=== PATIENT | female | born 1995 | race Caucasian/White ===

== ENCOUNTER → 2016-08-17 | Outpatient (CLI) | payer BC, OTHER ==
[2016-08-17 15:41] LABS: CH 32.4; HCT 37.2 % (34.0-46.0); HDW 2.49; HGB 12.9 gm/dL (11.4-16.0); MCH 32.2 pg (25.0-35.0); MCHC 34.6 g/dL (31.0-37.0); MCV 93.1 fL (80.0-100.0); Mean Platelet Volume 7.7; RBC 3.99 m/uL (3.80-5.40); RDW 12.5 % (11.5-15.5); WBC 10.9 k/uL (3.8-10.6)
[2016-08-17 15:51] LABS: Glucose 72 mg/dL (74-99); Non-African American GFR(MDRD) >60 (>60 ml/min/1.73 sqM)
[2016-08-17 16:24] LABS: Hepatitis B Surface Ag Index 0.06
[2016-08-18 05:02] LABS: Toxoplasma Antibody (IgG) <3.0 IU/mL (<7.2)
[2016-08-18 08:08] LABS: HIV-1/HIV-2 Ab Screen NONREAC (NON REAC)
== END | disposition home or self-care (01) ==
LOC: LABWHC1 15:20
PROVIDERS: ATTEND Obstetrics & Gynecology
DX: Z34.81 Encounter for supervision of other normal pregnancy, first trimester (principal); Z3A.00 Weeks of gestation of pregnancy not specified
CPT/HCPCS: 36415; 82565; 82947; 85027; 86762; 86777; 86778; 86780; 86850; 86900; 86901; 87340; 87389

== ENCOUNTER → 2016-09-29 | Outpatient (CLI) | payer BC, OTHER ==
--- NOTE | 2016-09-30 08:00 | US ---
EXAMINATION TYPE: US OB >= 14 wk fetus DATE OF EXAM: 09/29/2016 3:40 PM COMPARISON: None CLINICAL HISTORY: Large for Dates O36.62XO Anatomy. Patient states having last ultrasound at 9 weeks . TECHNIQUE: Transabdominal (TA) GESTATIONAL AGE / DATING Physician Established: (18 weeks/6 days) EDC: 05/20/2016 Dates by Current Scan: (14 weeks/5 days) EDC: 03/25/2017 SURVEY IUP: Single PLACENTA: Anterior PREVIA: No Previa ASHWINI: 9.5 cm Normal CERVICAL LENGTH (transabdominal: norm > 3.0cm): 3.9 cm BIOMETRY PRESENTATION: Vertex LIE: Longitudinal BPD: 2.3 cm 13 weeks / 6 days HC: 9.9 cm 14 weeks / 5 days AC: 8.9 cm 15 weeks / 1 days FL: 1.7 cm 15 weeks / 1 days ESTIMATED WEIGHT IN GRAMS: 112 grams ESTIMATED WEIGHT IN LBS/OZS: 0 lbs. 4 oz. WEIGHT PERCENTAGE BASED ON ESTABLISHED DATES: 2% HEART RATE: 0 bpm RHYTHM: Negative FHT's The cranium is partially collapsed. demise seen. Negative FHT's through mmode and color doppler. Debris seen within amniotic flu id. Fetus measuring 14 weeks 5 days. No heart valve motion was obtained. IMPRESSION: DEMISE.
== END | disposition home or self-care (01) ==
LOC: RADUSWWP 15:02
PROVIDERS: ATTEND Obstetrics & Gynecology
DX: O36.4XX0 Maternal care for intrauterine death, not applicable or unspecified (principal); Z3A.14 14 weeks gestation of pregnancy
CPT/HCPCS: 76805

== ENCOUNTER 2016-09-30 06:00 | Inpatient (IN) | payer BC, OTHER ==
[2016-09-30] MEDS ORDERED: ONDANSETRON 4 MG/2 ML VIAL IVP PRN (08:38)
--- NOTE | 2016-09-30 08:48 | P.HPOB ---
History of Present Illness H&P Date: 09/30/16 Chief Complaint: demise 21 year old presents for induction of labor due to demise measuring 14 weeks 5 days yesterday on US with no heart tones. She had laminaria placed yesterday, removed today and her cervix is 1/thick /-4. Review of Systems All systems: negative Constitutional: Denies chills, Denies fever Eyes: denies blurred vision, denies pain Ears, nose, mouth and throat: Denies headache, Denies sore throat Cardiovascular: Denies chest pain, Denies shortness of breath Respiratory: Denies cough Gastrointestinal: Denies abdominal pain, Denies diarrhea, Denies nausea, Denies vomiting Genitourinary: Denies dysuria, Denies hematuria Musculoskeletal: Denies myalgias Integumentary: Denies pruritus, Denies rash Neurological: Denies numbness, Denies weakness Psychiatric: Denies anxiety, Denies depression Endocrine: Denies fatigue, Denies weight change Past Medical History Past Medical History: No Reported History Additional Past Medical History / Comment(s): OB history: First was a full term vaginal delivery. She has had care with me since early in the first trimester. US yesterday was for anatomy at 19 weeks but measured 14 weeks 5 days with no heart beat. History of Any Multi-Drug Resistant Organisms: None Reported Past Surgical History: No Surgical Hx Reported Past Psychological History: No Psychological Hx Reported Smoking Status: Current every day smoker Past Alcohol Use History: Occasional Past Drug Use History: None Reported Medications and Allergies Allergies Allergy/AdvReac Type Severity Reaction Status Date / Time codeine Allergy Rash/Hives Verified 03/06/14 17:57 Exam Osteopathic Statement: *. No significant issues noted on an osteopathic structural exam other than those noted in the History and Physical/Consult. Heart: Regular rate and rhythm Lungs: Clear to auscultation bilaterally Abdomen: Soft, nontender Extremities: Negative Homans sign Assessment and Plan (1) demise before 22 weeks with retention of fetus Status: Acute Plan: 1. admit to [facility] 2. cytotec 400mg po every 4 hours
[2016-09-30 08:54] LABS: Basophils % (A) 0 %; CH 31.8; CHCM 34.1; Eosinophils # (A) 0.1 k/uL (0-0.7); Eosinophils % (A) 1 %; HCT 36.9 % (34.0-46.0); HDW 2.56; HGB 12.6 gm/dL (11.4-16.0); Luc # (Auto) 0.15; Luc % (Auto) 1; Lymphocytes # (A) 1.7 k/uL (1.0-4.8); Lymphocytes % (A) 13 %; MCHC 34.2 g/dL (31.0-37.0); MCV 93.7 fL (80.0-100.0); Mean Platelet Volume 7.1; Monocytes # (A) 0.6 k/uL (0-1.0); Monocytes % (A) 5 %; Neutrophils % (A) 81 %; RBC 3.94 m/uL (3.80-5.40); RDW 13.7 % (11.5-15.5); WBC 13.6 k/uL (3.8-10.6); WBC (Perox) 14.76
[2016-09-30] MEDS ORDERED: MISOPROSTOL 200 MCG TAB PO SCH (09:00)
[2016-09-30 09:11] VITALS: BMI 44.2
[2016-09-30] MEDS: BUTORPHANOL 1 MG/ML 1 ML VIAL IV PRN ×2 (11:28→13:48)
--- NOTE | 2016-09-30 13:13 | P.PROBDLV ---
Vaginal Delivery Note - . Vaginal Delivery Note: Patient delivered a nonviable approximately 15-16 week fetus and placenta without difficulty. Following delivery she is not bleeding and she is overall feeling well. We'll watch her for the next couple of hours or until she feels ready to go home. Otherwise she is stable at this time.
[2016-09-30 13:32] VITALS: RESP 16
[2016-09-30 15:57] VITALS: BP 110/55; PULSE 86; TEMP 97.5
[2016-09-30] MEDS ORDERED: IBUPROFEN 600 MG TAB PO SCH (18:00)
--- NOTE | 2016-10-11 09:25 | P.DS ---
Providers Date of admission: 09/30/16 07:16 Expected date of discharge: 09/30/16 Attending physician: Rosa Hi Primary care physician: Stated None Hospital Course: following delivery of a nonviable baby oral was monitored and once she was stable and bleeding was noted to be light she was discharged home in stable and satisfactory condition. She will follow up with Dr. Hi in 1 week. Discharge instructions thoroughly reviewed including returning for any heavy bleeding or severe pain. all other questions were answered for her prior to discharge and she was stable for discharge Patient Condition at Discharge: Good Plan - Discharge Summary New Discharge Prescriptions: Ibuprofen [Motrin] 600 mg PO Q6HR PRN #30 tab PRN Reason: Pain Discharge Medication List Albuterol Inhaler [Ventolin Hfa Inhaler] 1 - 2 puff INHALATION Q4-6H PRN #1 inhaler 03/06/14 [Rx] predniSONE 50 mg PO DAILY #5 tab 03/06/14 [Rx] Ibuprofen [Motrin] 600 mg PO Q6HR PRN #30 tab 09/30/16 [Rx] Pnv with Ca,No.72/Iron/FA [ Plus Tablet] 09/30/16 [History] Follow up Appointment(s)/Referral(s): Rosa Hi DO [Doctor of Osteopathic Medicine] - 1 Week Activity/Diet/Wound Care/Special Instructions: Call for any severe pain, heavy vaginal bleeding, or high temperatures Discharge Disposition: HOME SELF-CARE
== END 2016-09-30 18:01 | disposition home or self-care (01) | DRG 779 ==
LOC: 4FBP 07:16
PROVIDERS: ADMIT Obstetrics & Gynecology; ATTEND Obstetrics & Gynecology
PROC: 10A07ZX Abortion of Products of Conception, Abortifacient, Via Natural or Artificial Opening (ICD-10-PCS; principal; 2016-09-30)
DX: O02.1 Missed abortion (principal); Z3A.16 16 weeks gestation of pregnancy
CPT/HCPCS: 76805; 85025; 88300; 88305

== ENCOUNTER → 2017-02-08 | Outpatient (CLI) | payer BC, OTHER ==
--- NOTE | 2017-02-09 08:16 | MR ---
EXAMINATION TYPE: MR venography head wo con DATE OF EXAM: 02/08/2017 COMPARISON: NONE HISTORY: PseudoTumor, Headache Standard multiplanar, multisequence MRI departmental protocol Multiplanar, multisequence images as part of an MRV were acquired. FINDINGS: Dural venous sinuses are patent. No evidence to suggest sagittal venous thrombosis. IMPRESSION: Normal MRV
--- NOTE | 2017-02-09 08:44 | MR ---
EXAMINATION TYPE: MR brain/cspine wo DATE OF EXAM: 02/08/2017 COMPARISON: NONE HISTORY: PseudoTumor, Headache T1-weighted sagittal, T2, FLAIR, and diffusion axial, and T2 coronal coronal views of the brain are s ubmitted. There is no evidence of acute ischemia. The ventricles, basal cisterns, and sulci overlying the conv exities are consistent with the patient's age. There is no mass effect. Craniocervical junction maintained. Sella turcica has a normal appearance. No cerebellopontine angle mass. Changes of chronic sinusitis noted. IMPRESSION: 1. No acute intracranial process. EXAMINATION TYPE: MR brain/cspine wo DATE OF EXAM: 02/08/2017 COMPARISON: NONE HISTORY: PseudoTumor, Headache TECHNIQUE: T1 sagittal and coronal, T2 sagittal, and gradient echo axial views of the cervical spine are submitted. FINDINGS: The cranial cervical junction is preserved. There is no abnormal signal seen within the sp inal cord or paraspinal soft tissues. Shotty adenopathy in the neck noted. At C2-3 there is no disc herniation, canal stenosis, or foraminal encroachment. At C3-4 there is no disc herniation, canal stenosis, or foraminal encroachment. At C4-5 there is no disc herniation, canal stenosis, or foraminal encroachment. At C5-6 there is no disc herniation, canal stenosis, or foraminal encroachment. At C6-7 there is no disc herniation, canal stenosis, or foraminal encroachment. At C7-T1 there is no disc herniation, canal stenosis, or foraminal encroachment. IMPRESSION: 1. No disc herniation or canal stenosis.
== END | disposition home or self-care (01) ==
LOC: RADMRIMAIN 20:34
PROVIDERS: ATTEND Neurological Surgery
DX: M50.30 Other cervical disc degeneration, unspecified cervical region (principal); G93.2 Benign intracranial hypertension
CPT/HCPCS: 70544; 70551; 72141

== ENCOUNTER 2017-06-26 02:10 | Outpatient (CLI) | payer BC, OTHER ==
[2017-06-26 03:02] VITALS: BP 90/51; PULSE 87; RESP 16; TEMP 99
--- NOTE | 2017-06-27 08:41 | P.MSEPDOC ---
Presenting Problems - Arrival Data Date of Arrival on Unit: 06/26/17 Time of Arrival on Unit: 02:08 Mode of Transport: Wheelchair - Complaint OB-Reason for Admission/Chief Complaint: Vaginal Bleeding Comment: blood when wiped at 0130, no blood noted on pad pt wore in. Medical History - Information : 3 Para: 2 Term: 1 : 1 Abortions: Spontaneous or Elective: 0 Number of Living Children: 1 - Gestational Age Gestational Age by RACHEL (wks/days): 20 Weeks and 0 Days - History Complications: Other Comment: demise at 20 weeks with past Review of Systems - Review of Systems Constitutional: No problems Breast: No problems ENT: No problems Cardiovascular: No problems Respiratory: No problems Gastrointestinal: No problems Genitourinary: No problems Musculoskeletal: No problems Neurological: No problems Skin: No problems Vital Signs - Temperature Temperature: 99.0 F Temperature Source: Oral - Pulse Right Sitting Brachial Pulse Rate: 87 Pulse Assessment Method: Automatic Cuff - Respirations Respiratory Rate: 16 Oxygen Delivery Method: Room Air O2 Sat by Pulse Oximetry: 98 - Blood Pressure Right Arm Sitting Blood Pressure: 90/51 Blood Pressure Mean: 64 Blood Pressure Source: Automatic Cuff Medical Screen Scoring (Pre) - Cervical Exam Dilation: 0 cm = 0 Membranes: Intact - Uterine Contractions Frequency: N/A Duration: N/A Intensity: N/A - Maternal Vital Signs Maternal Temperature: N/A Maternal Blood Pressure: N/A Signs of Preeclampsia: N/A - Pain Assessment Pain Scale Used: Numeric (1 - 10) Pain Intensity: 0 - Maternal Trauma Maternal Trauma: N/A - Assessment Baseline FHR: 149-160 Position: N/A Station: N/A - Total Score Total Score (Pre): 0 - Level of Risk Level of Risk: Low (0-5) Physician Notification (Pre) - Physician Notified Physician Notified Date: 06/26/17 Physician Notified Time: 02:35 Spoke With: Dr Mathew New Order Received: Yes Disposition - Disposition OB Disposition: Discharge to home, Written follow up instructions reviewed Discharge Date: 06/26/17 Discharge Time: 02:45 I agree with the RN Medical Screening Exam: Yes Risk & Benefit of care provided described in d/c instruction: Yes Diagnosis: SPOTTING COMPLICATING , SECOND TRIMESTER
== END 2017-06-26 02:45 | disposition home or self-care (01) ==
LOC: FBPOP 02:10
PROVIDERS: ATTEND Obstetrics & Gynecology
DX: O26.852 Spotting complicating pregnancy, second trimester (principal); Z3A.20 20 weeks gestation of pregnancy
CPT/HCPCS: 99213

== ENCOUNTER 2017-08-14 13:32 | Outpatient (CLI) | payer BC, OTHER ==
[2017-08-14 14:15] VITALS: BP 119/72; PULSE 114; RESP 18; TEMP 97.2
--- NOTE | 2017-08-14 18:30 | P.MSEPDOC ---
Presenting Problems - Arrival Data Date of Arrival on Unit: 08/14/17 Time of Arrival on Unit: 13:35 Mode of Transport: Ambulatory - Complaint OB-Reason for Admission/Chief Complaint: Decreased Movement Comment: last felt movement sat. at 1700, + intercourse last PM Medical History - Information : 3 Para: 1 Term: 0 : 0 Abortions: Spontaneous or Elective: 1 Number of Living Children: 1 - Gestational Age Gestational Age by RACHEL (wks/days): 27 Weeks and 0 Days - History Comment: hx: 20 week demise, pseudo tumor causing vision changes Review of Systems - Review of Systems Constitutional: No problems Breast: No problems ENT: No problems Cardiovascular: No problems Respiratory: No problems Gastrointestinal: No problems Genitourinary: No problems Musculoskeletal: No problems Skin: No problems Comment: pseudo tumor requiring surgery post delivery Vital Signs - Temperature Temperature: 97.2 F Temperature Source: Temporal Artery Scan - Pulse Right Sitting Brachial Pulse Rate: 114 Pulse Assessment Method: Automatic Cuff - Respirations Respiratory Rate: 18 Oxygen Delivery Method: Room Air - Blood Pressure Right Arm Sitting Blood Pressure: 119/72 Blood Pressure Mean: 87 Blood Pressure Source: Automatic Cuff Medical Screen Scoring (Pre) - Cervical Exam Dilation: Exam Deferred Effacement: Exam Deferred - Uterine Contractions Frequency: N/A Duration: N/A Intensity: N/A - Maternal Vital Signs Maternal Temperature: N/A Maternal Blood Pressure: N/A Signs of Preeclampsia: N/A Maternal Respirations: N/A - Pain Assessment Pain Intensity: 0 Pain Management Goal: 0 - Total Score Total Score (Pre): 0 - Level of Risk Level of Risk: Low (0-5) Physician Notification (Pre) - Physician Notified Physician Notified Date: 08/14/17 Physician Notified Time: 14:10 Physician/Practitioner Notifed:: Dr Hi Spoke With: Dr Hi New Order Received: Yes - Notification Comment Comment: + movement, + accels noted. Discharge home. Maternal heart rate down to 105-115. Disposition - Disposition OB Disposition: Discharge to home Discharge Date: 08/14/17 Discharge Time: 14:15 I agree with the RN Medical Screening Exam: Yes Risk & Benefit of care provided described in d/c instruction: Yes Diagnosis: DECREASED MOVEMENTS, THIRD TRIMESTER, UNSP
== END 2017-08-14 14:16 | disposition home or self-care (01) ==
LOC: FBPOP 13:32
PROVIDERS: ATTEND Obstetrics & Gynecology
DX: O36.8120 Decreased fetal movements, second trimester, not applicable or unspecified (principal); Z3A.27 27 weeks gestation of pregnancy
CPT/HCPCS: 99213

== ENCOUNTER 2017-11-07 06:00 | Inpatient (IN) | payer BC, OTHER ==
[2017-11-07] MEDS ORDERED: LIDOCAINE 1% (PF) 10 MG/ML (30 ML SDV) SQ PRN (06:18)
[2017-11-07] MEDS ORDERED: TERBUTALINE 1 MG/ML VIAL SQ PRN (06:18)
[2017-11-07] MEDS ORDERED: METHYLERGONOVINE 0.2 MG/ML 1 ML AMP IM PRN (06:18)
[2017-11-07] MEDS ORDERED: OXYTOCIN 10 UNIT/ML 1 ML VIAL IM PRN (06:18)
[2017-11-07] MEDS ORDERED: CARBOPROST TROMETHAMINE 250 MCG/ML 1 ML AMP IM PRN (06:18)
[2017-11-07 06:27] VITALS: RESP 16; BMI 47.8
[2017-11-07] MEDS ORDERED: OXYTOCIN 20 UNITS/1000 ML NS 1,000 ML IV SCH ×2 (06:30→21:30)
[2017-11-07] MEDS: LACTATED RINGERS 1,000 ML IV SCH ×3 (06:44→18:42)
[2017-11-07 07:04] LABS: Anisocytosis Slight; Basophils % (A) 0 %; Eosinophils # (A) 0.1 k/uL (0-0.7); Eosinophils % (A) 1 %; HCT 36.8 % (34.0-46.0); HGB 12.4 gm/dL (11.4-16.0); Lymphocytes % (A) 21 %; MCH 30.2 pg (25.0-35.0); MCHC 33.8 g/dL (31.0-37.0); MCV 89.5 fL (80.0-100.0); Monocytes # (A) 0.5 k/uL (0-1.0); Monocytes % (A) 5 %; Neutrophils # (A) 6.7 k/uL (1.3-7.7); Neutrophils % (A) 70 %; Platelet Count 252 k/uL (150-450); RBC 4.11 m/uL (3.80-5.40); WBC 9.6 k/uL (3.8-10.6)
--- NOTE | 2017-11-07 08:06 | P.HPOB ---
History of Present Illness H&P Date: 11/07/17 Chief Complaint: Induction of Labor 22 year old presents at 39 weeks 1 day for induction of labor. HEr cervix is 2/60/-2 and she is not igor. heart tones 130-135 with moderate variability and reactive. Review of Systems All systems: negative Constitutional: Denies chills, Denies fever Eyes: denies blurred vision, denies pain Ears, nose, mouth and throat: Denies headache, Denies sore throat Cardiovascular: Denies chest pain, Denies shortness of breath Respiratory: Denies cough Gastrointestinal: Denies abdominal pain, Denies diarrhea, Denies nausea, Denies vomiting Genitourinary: Denies dysuria, Denies hematuria Musculoskeletal: Denies myalgias Integumentary: Denies pruritus, Denies rash Neurological: Denies numbness, Denies weakness Psychiatric: Denies anxiety, Denies depression Endocrine: Denies fatigue, Denies weight change Past Medical History Past Medical History: Neurologic Disorder (Pseudotumor cerebri) Additional Past Medical History / Comment(s): OB history: First was a full term vaginal delivery. Second was a demise at 15 weeks gestation she delivered that baby vaginally as well. This is her third and she's had care with me since 9 weeks gestation. Blood type is B+, amylase negative, rubella immune, RPR nonreactive, hepatitis B B-, HIV nonreactive, toxoplasmosis negative. Negative quad screen. Normal anatomy ultrasound, male. Normal 1 hour glucose tolerance test. GBS negative. History of Any Multi-Drug Resistant Organisms: None Reported Past Surgical History: No Surgical Hx Reported Additional Past Surgical History / Comment(s): Eye surgery Past Anesthesia/Blood Transfusion Reactions: No Reported Reaction Past Psychological History: No Psychological Hx Reported Smoking Status: Never smoker Past Alcohol Use History: Occasional Past Drug Use History: None Reported - Past Family History Mother History Unknown: Yes Family Medical History: No Reported History Medications and Allergies Home Medications Medication Instructions Recorded Confirmed Type Pnv with Ca,No.72/Iron/FA 1 tab PO DAILY 09/30/16 06/26/17 History [ Plus Tablet] Allergies Allergy/AdvReac Type Severity Reaction Status Date / Time codeine Allergy Rash/Hives Verified 11/07/17 06:17 Exam Osteopathic Statement: *. No significant issues noted on an osteopathic structural exam other than those noted in the History and Physical/Consult. - Vital Signs Vital signs: Vital Signs Temp Pulse Resp BP Pulse Ox 11/07/17 06:14 96.3 F L 122 H 16 143/67 98 Intake and Output 11/06/17 11/07/17 11/07/17 22:59 06:59 14:59 Other: Weight 122.47 kg Heart: Regular rate and rhythm Lungs: Clear to auscultation bilaterally Abdomen: Soft, nontender Extremities: Negative Homans sign Results Result Diagrams: 11/07/17 06:40 Abnormal Lab Results - Last 24 Hours (Table) 11/07/17 Range/Units 06:40 RDW 17.0 H (11.5-15.5) % Assessment and Plan (1) Normal labor Current Visit: Yes Status: Acute Code(s): O80 - ENCOUNTER FOR FULL-TERM UNCOMPLICATED DELIVERY; Z37.9 - OUTCOME OF DELIVERY, UNSPECIFIED SNOMED Code(s ): 41188480 Plan: 1. Induction of labor with amniotomy and Pitocin 2. Anticipate normal vaginal delivery
[2017-11-07] MEDS ORDERED: BUTORPHANOL 1 MG/ML 1 ML VIAL IV PRN (12:16)
[2017-11-07] MEDS ORDERED: fentaNYL (PF) 50 MCG/ML 5 ML AMP ONE (15:02)
[2017-11-07] MEDS ORDERED: BUPIVACAINE (PF) 0.25% 30 ML VIAL ONE (15:02)
[2017-11-07] MEDS ORDERED: SODIUM CHLORIDE 0.9% 100 ML BAG ONE (15:02)
[2017-11-07] MEDS ORDERED: WITCH HAZEL 1 EACH MED..PAD TOPICAL PRN (21:28)
[2017-11-07] MEDS ORDERED: diphenhydrAMINE 50 MG/ML 1 ML VIAL IVP PRN ×2 (21:28)
[2017-11-07] MEDS ORDERED: HYDROcodone/APAP 5-325MG 1 EACH TAB PO PRN (21:28)
[2017-11-07] MEDS ORDERED: LANOLIN CREAM 5 GM TUBE TOPICAL PRN (21:28)
[2017-11-07] MEDS ORDERED: ZOLPIDEM 5 MG TAB PO PRN (21:28)
[2017-11-07] MEDS ORDERED: HYDROCORTISONE 2.5% RECTAL CREAM 30 GM TUBE RECTAL PRN (21:28)
[2017-11-07] MEDS ORDERED: diphenhydrAMINE 50 MG CAP PO PRN (21:28)
[2017-11-07] MEDS ORDERED: diphenhydrAMINE 25 MG CAP PO PRN (21:28)
[2017-11-07] MEDS ORDERED: SIMETHICONE 80 MG CHEWABLE PO PRN (21:28)
[2017-11-07] MEDS ORDERED: BENZOCAINE/MENTHOL SPRAY 1 GM/SPRAY AEROSOL TOPICAL PRN (21:28)
--- NOTE | 2017-11-07 21:31 | P.PROBDLV ---
Vaginal Delivery Note - . Vaginal Delivery Note: 22-year-old presents at 39 weeks and 1 day for induction of labor. Her cervix is 2 cm dilated, except percent effaced, and -2 station. She is igor irregularly. heart tones 130-135 with moderate variability and reactive. Pitocin was started. Amniotomy was performed at 7:53 AM and clear fluid noted. When she was 5 cm she did get an epidural and was comfortable. When she was about 8-9 cm she was very uncomfortable and we did start pushing. After pushing a few times her cervix was completely dilated at 2105, she pushed, and delivered a viable male infant over intact perineum at 2106. Head delivered OA, anterior shoulder delivered gentle downward traction followed by posterior shoulder and rest of body. Nose and mouth bulb suctioned , cord clamped and cut, infant placed on mother's abdomen. Apgars 9, 10, weight 7 lbs. 6 oz. Placenta delivered spontaneously, intact with three-vessel cord at 2108. Vagina, cervix, and perineum were inspected. First-degree midline laceration was repaired with 3-0 Vicryl. Estimated blood loss 200 mL. Mother and baby in stable condition.
[2017-11-07] MEDS: IBUPROFEN 600 MG TAB PO PRN (22:13)
[2017-11-08] MEDS: IBUPROFEN 600 MG TAB PO PRN ×3 (05:50→18:13)
--- NOTE | 2017-11-08 08:57 | P.PNOBGVD ---
Subjective - Subjective Principal diagnosis: Status post normal vaginal delivery day #1 Interval history: Patient seen and examined. Denies nausea, vomiting, chest pain, shortness of breath or calf pain. Patient reports: Reports appetite normal, Reports voiding normally, Reports pain well controlled, Reports ambulating normally [place]: doing well Objective - Latest Vital Signs Latest vital signs: Vital Signs Temp Pulse Resp BP 11/08/17 04:00 98.2 F 74 16 122/66 11/07/17 23:20 98.4 F 110 H 16 114/63 11/07/17 22:45 100 16 98/56 11/07/17 22:20 83 16 125/60 11/07/17 22:05 91 16 116/64 11/07/17 21:50 99 16 118/75 11/07/17 21:35 93 16 111/57 11/07/17 21:20 102 H 16 140/61 Intake and Output 11/07/17 11/08/17 11/08/17 22:59 06:59 14:59 Output Total 650 Balance -650 Output: Urine 450 Estimated Blood Loss 200 Other: # Voids 1 - Exam Lungs: bilateral: normal Chest: Normal S1, Normal S2 Extremities: Present: normal Abdomen: Present: normal appearance, soft Uterus: Present: normal, firm Assessment and Plan (1) Normal labor Current Visit: Yes Status: Resolved Code(s): O80 - ENCOUNTER FOR FULL-TERM UNCOMPLICATED DELIVERY; Z37.9 - OUTCOME OF DELIVERY, UNSPECIFIED SNOMED Code(s ): 08205701 (2) Normal vaginal delivery Current Visit: Yes Status: Acute Code(s): O80 - ENCOUNTER FOR FULL-TERM UNCOMPLICATED DELIVERY SNOMED Code(s): 21372234 Plan: 1. Continue care
[2017-11-08] MEDS: SENNOSIDES-DOCUSATE SODIUM 1 EACH TAB PO SCH ×2 (09:22→19:58)
[2017-11-08] MEDS: ACETAMINOPHEN TAB 325 MG TAB PO PRN ×2 (14:43→23:07)
[2017-11-09] MEDS: SENNOSIDES-DOCUSATE SODIUM 1 EACH TAB PO SCH (08:06)
[2017-11-09] MEDS: IBUPROFEN 600 MG TAB PO PRN (08:07)
--- NOTE | 2017-11-09 08:43 | P.DS ---
Providers Date of admission: 11/07/17 06:03 Expected date of discharge: 11/09/17 Attending physician: Rosa Hi Primary care physician: Stated None - Discharge Diagnosis(es) (1) Normal labor Current Visit: Yes Status: Resolved (2) Normal vaginal delivery Current Visit: Yes Status: Acute Hospital Course: Patient presented for induction of labor. She underwent normal vaginal delivery. Her course uncomplicated. She'll be discharged home day #2 in stable condition to follow-up with me in 6 weeks. Plan - Discharge Summary New Discharge Prescriptions: No Action Pnv with Ca,No.72/Iron/FA [ Plus Tablet] 1 tab PO DAILY Discharge Medication List Pnv with Ca,No.72/Iron/FA [ Plus Tablet] 1 tab PO DAILY 09/30/16 [ History] Follow up Appointment(s)/Referral(s): Rosa Hi DO [Doctor of Osteopathic Medicine] - 6 Weeks Discharge Disposition: HOME SELF-CARE
[2017-11-09 09:17] VITALS: BP 108/68; PULSE 68; TEMP 98.2
== END 2017-11-09 12:00 | disposition home or self-care (01) | DRG 775 ==
LOC: 4FBP 06:03
PROVIDERS: ADMIT Obstetrics & Gynecology; ATTEND Obstetrics & Gynecology
PROC: 10907ZC Drainage of Amniotic Fluid, Therapeutic from Products of Conception, Via Natural or Artificial Opening (ICD-10-PCS; principal; 2017-11-07)
PROC: 3E033VJ Introduction of Other Hormone into Peripheral Vein, Percutaneous Approach (ICD-10-PCS; principal; 2017-11-07)
PROC: 10E0XZZ Delivery of Products of Conception, External Approach (ICD-10-PCS; principal; 2017-11-07)
PROC: 3E0R3NZ Introduction of Analgesics, Hypnotics, Sedatives into Spinal Canal, Percutaneous Approach (ICD-10-PCS; principal; 2017-11-07)
PROC: 0HQ9XZZ Repair Perineum Skin, External Approach (ICD-10-PCS; principal; 2017-11-07)
PROC: 00HU33Z Insertion of Infusion Device into Spinal Canal, Percutaneous Approach (ICD-10-PCS; principal; 2017-11-07)
DX: O70.0 First degree perineal laceration during delivery (principal); Z37.0 Single live birth; Z3A.39 39 weeks gestation of pregnancy; Z88.5 Allergy status to narcotic agent
CPT/HCPCS: 85025; 88307

== ENCOUNTER 2018-11-07 19:19 | Emergency (ER) | payer BC, OTHER ==
[2018-11-07 19:38] VITALS: BP 126/79; PULSE 114; RESP 20; TEMP 98.6
[2018-11-07] MEDS ORDERED: METOCLOPRAMIDE 5 MG/ML 2 ML VIAL IVP STA (21:00)
[2018-11-07] MEDS ORDERED: KETOROLAC 30 MG/ML 1 ML VIAL IVP STA (21:00)
[2018-11-07] MEDS ORDERED: diphenhydrAMINE 50 MG/ML 1 ML VIAL IVP STA (21:00)
--- NOTE | 2018-11-07 21:11 | ED ---
Headache HPI - General Chief Complaint: Headache Stated Complaint: Headache Time Seen by Provider: 11/07/18 20:17 Mode of arrival: ambulatory Limitations: no limitations - History of Present Illness Initial Comments: 23-year-old female patient with past medical history significant for pseudotumor cerebri presents to the emergency department today for evaluation of headache. Patient states she developed a headache 2 weeks ago. Patient states she has been having had pain every day all day for 2 weeks. Patient states today the pain worsens significantly. Patient states she feels a lot of pressure in the top of her head, states it feels like it's going to "explode". Patient states she is having pain in her neck and her upper back as well. States he did take ibuprofen and Tylenol for symptom relief however did not help. Patient states she feels pressure behind her eyes. Denies any blurred or double vision. States she has been nauseated. Denies any vomiting. She denies any numbness, tingling, weakness to her extremities. Patient denies any recent rash, fever, chills, shortness breath, chest pain, abdominal pain, diarrhea, constipation, back pain, hematuria, dysuria, urinary urgency, urinary frequency, or any other complaints. - Related Data Home Medications Medication Instructions Recorded Confirmed Dextroamphetamine/Amphetamine 20 mg PO TID 11/07/18 11/07/18 [Adderall] Allergies Allergy/AdvReac Type Severity Reaction Status Date / Time codeine Allergy Rash/Hives Verified 11/07/18 20:42 Review of Systems ROS Statement: Those systems with pertinent positive or pertinent negative responses have been documented in the HPI. ROS Other: All systems not noted in ROS Statement are negative. Past Medical History Past Medical History: Neurologic Disorder Additional Past Medical History / Comment(s): OB history: First was a full term vaginal delivery. Second was a demise at 15 weeks gestation she delivered that baby vaginally as well. This is her third and she's had care with me since 9 weeks gestation. Blood type is B+, amylase negative, rubella immune, RPR nonreactive, hepatitis B B-, HIV nonreactive, toxoplasmosis negative. Negative quad screen. Normal anatomy ultrasound, male. Normal 1 hour glucose tolerance test. GBS negative. History of Any Multi-Drug Resistant Organisms: None Reported Past Surgical History: No Surgical Hx Reported Additional Past Surgical History / Comment(s): Eye surgery Past Anesthesia/Blood Transfusion Reactions: No Reported Reaction Past Psychological History: No Psychological Hx Reported Smoking Status: Never smoker Past Alcohol Use History: Occasional Past Drug Use History: None Reported - Past Family History Mother History Unknown: Yes Family Medical History: No Reported History General Exam Limitations: no limitations General appearance: alert, in no apparent distress, other (This is a well- developed, well-nourished adult female patient in mild distress related to pain. Vital signs upon presentation are temperature 98.6F, pulse 114, respirations 20, blood pressure 126/79, pulse ox 100% on room air.) Eye exam: Present: normal appearance, PERRL, EOMI, other (Rash or to the right eye is 25 mmHg, pressure to the left eye is 24 mmHg.). Absent: scleral icterus, conjunctival injection, nystagmus, periorbital swelling ENT exam: Present: normal exam, normal oropharynx, mucous membranes moist Respiratory exam: Present: normal lung sounds bilaterally. Absent: respiratory distress, wheezes, rales, rhonchi, stridor Cardiovascular Exam: Present: regular rate, normal rhythm, normal heart sounds. Absent: systolic murmur, diastolic murmur, rubs, gallop, clicks GI/Abdominal exam: Present: soft, normal bowel sounds. Absent: distended, tenderness, guarding, rebound, rigid Neurological exam: Present: alert, oriented X3, CN II-XII intact Psychiatric exam: Present: normal affect, normal mood Skin exam: Present: warm, dry, intact, normal color. Absent: rash Course Vital Signs 11/07/18 19:34 Temperature 98.6 F Pulse Rate 114 H Respiratory 20 Rate Blood Pressure 126/79 O2 Sat by Pulse 100 Oximetry Medical Decision Making - Medical Decision Making 23-year-old female patient presents to the emergency department today for evaluation of headache. Patient does have a history of pseudotumor cerebri. Patient say she's had this headache for the last 2 weeks worsening today. Patient is reporting a pressure behind her eyes. She is neurologically intact with no focal deficits. Pressure to the right eye is 25 mmHg, pressure to the left eye is 24 mmHg. She was given IV medications for headache. Patient does report fast improvement of symptoms upon reevaluation she is currently reporting headache at 3 out of 10 on the pain scale. Patient does feel comfortable being discharged home at this time. She does have an appointment with her pharmacy operations specialist tomorrow. She is urged to keep this appointment. Return parameters were discussed in detail. She verbalizes understanding and agrees with this plan. - Lab Data Lab Results 11/07/18 Range/Units 21:24 Urine HCG, Qual Not Detected (Not Detectd) Disposition Clinical Impression: Headache Disposition: HOME SELF-CARE Condition: Good Instructions (If sedation given, give patient instructions): Acute Headache (ED) Additional Instructions: Follow-up with ophthalmology as you have planned tomorrow. Informed them that your eye pressures today were Right: 25 mmHg, Left 24 mmHg. Rest. Follow-up with your primary care physician for recheck in 1-2 days. Return to the emergency department immediately for any new, worsening, or concerning symptoms. Is patient prescribed a controlled substance at d/c from ED?: No Referrals: Magnus Powers MD [Primary Care Provider] - 1-2 days Time of Disposition: 22:49
== END 2018-11-07 22:58 | disposition home or self-care (01) ==
LOC: EC 19:19
DX: R51 Headache (principal); R11.0 Nausea; Z86.69 Personal history of other diseases of the nervous system and sense organs; Z98.890 Other specified postprocedural states; Z79.899 Other long term (current) drug therapy; Z88.5 Allergy status to narcotic agent
CPT/HCPCS: 81025; 96374; 96375; 99284

== ENCOUNTER 2019-06-14 16:09 | Outpatient (CLI) | payer BC, OTHER ==
[2019-06-14 17:13] VITALS: BP 120/59; PULSE 124; RESP 18; TEMP 97.3
--- NOTE | 2019-06-15 13:37 | P.MSEPDOC ---
Presenting Problems - Arrival Data Date of Arrival on Unit: 06/14/19 Time of Arrival on Unit: 16:10 Mode of Transport: Ambulatory - Complaint OB-Reason for Admission/Chief Complaint: NST Medical History - Information : 4 Para: 2 - Gestational Age Gestational Age by RACHEL (wks/days): 33 Weeks and 2 Days - History Comment: previous loss at 20weeks. Sent from office r/t doppler fhr 190. Review of Systems - Review of Systems Constitutional: No problems Breast: No problems ENT: No problems Cardiovascular: No problems Respiratory: No problems Gastrointestinal: No problems Genitourinary: No problems Musculoskeletal: No problems Neurological: No problems Skin: No problems Vital Signs - Temperature Temperature: 97.3 F Temperature Source: Temporal Artery Scan - Pulse Right Sitting Brachial Pulse Rate: 124 Pulse Assessment Method: Automatic Cuff - Respirations Respiratory Rate: 18 Oxygen Delivery Method: Room Air O2 Sat by Pulse Oximetry: 99 - Blood Pressure Right Arm Sitting Blood Pressure: 120/59 Blood Pressure Mean: 79 Blood Pressure Source: Automatic Cuff Medical Screen Scoring (Pre) - Cervical Exam Dilation: Exam Deferred Effacement: Exam Deferred - Uterine Contractions Frequency: N/A Duration: N/A Intensity: N/A - Maternal Vital Signs Maternal Temperature: N/A Maternal Blood Pressure: N/A Signs of Preeclampsia: N/A Maternal Respirations: N/A - Maternal Trauma Maternal Trauma: N/A - Assessment - Baby A Baseline FHR: 145 Heart Rate - NICHD Category: Category I (Normal) = 0 NST: Reactive Position: N/A Station: N/A - Total Score - Baby A Total Score - Baby A: 0 - Total Score - Baby B Total Score - Baby B: 0 - Total Score - Baby C Total Score - Baby C: 0 - Level of Risk - Baby A Level of Risk - Baby A: Low (0-5) - Level of Risk - Baby B Level of Risk - Baby B: Low (0-5) - Level of Risk - Baby C Level of Risk - Baby C: Low (0-5) Physician Notification (Pre) - Physician Notified Physician Notified Date: 06/14/19 Physician Notified Time: 16:45 New Order Received: Yes - Notification Comment Comment: DC home. NST reactive. Pt to follow up with Dr brian as scheduled. Disposition - Disposition OB Disposition: Discharge to home Discharge Date: 06/14/19 Discharge Time: 17:10 I agree with the RN Medical Screening Exam: Yes Risk & Benefit of care provided described in d/c instruction: Yes Diagnosis: RELATED CONDITIONS, UNSPECIFIED, THIRD TRIMESTER
== END 2019-06-14 17:10 | disposition home or self-care (01) ==
LOC: FBPOP 16:09
PROVIDERS: ATTEND Obstetrics & Gynecology
DX: O26.93 Pregnancy related conditions, unspecified, third trimester (principal); Z3A.33 33 weeks gestation of pregnancy
CPT/HCPCS: 59025; 99213

== ENCOUNTER → 2020-02-01 | Outpatient (CLI) | payer BC, OTHER | END | disposition home or self-care (01) | LOC: RADMRIMAIN 12:31 | PROVIDERS: ATTEND Internal Medicine Hematology & Oncology | DX: Z53.9 Procedure and treatment not carried out, unspecified reason (principal) ==

== ENCOUNTER 2020-07-27 20:13 | Emergency (ER) | payer BC, OTHER ==
[2020-07-27 20:27] VITALS: RESP 18; TEMP 99.4
[2020-07-27 21:47] LABS: Appearance,Urine Clear (Clear); Bacteria,Urine Rare /hpf; Bilirubin,Urine Negative (Negative); Blood,Urine Large (Negative); Color,Urine Light Yellow; Glucose,Urine (UA) Negative (Negative); Ketones,Urine Negative (Negative); Leukocyte Esterase,Urine Negative (Negative); Nitrite,Urine Negative (Negative); PH, Urine 6.5 (5.0-8.0); Protein,Urine Negative (Negative); RBC,Urine 2 /hpf (0-5); Specific Gravity,Urine 1.003 (1.001-1.035); Squamous Epithelial Cell,Urine 3 /hpf (0-4); Urobilinogen,Urine <2.0 mg/dL (<2.0); WBC,Urine 1 /hpf (0-5)
[2020-07-27 21:55] LABS: ALT 12 U/L (4-34); AST 19 U/L (14-36); African American GFR (CKD) >90 (>60 ml/min/1.73 sqM); Albumin 4.1 g/dL (3.5-5.0); Alkaline Phosphatase 64 U/L (38-126); Anion Gap 10 mmol/L; Blood Urea Nitrogen 7 mg/dL (7-17); Calcium 9.8 mg/dL (8.4-10.2); Carbon Dioxide 24 mmol/L (22-30); Chloride 104 mmol/L (98-107); Glucose 102 mg/dL (74-99); Non-African American GFR(CKD) >90 (>60 ml/min/1.73 sqM); Potassium 3.9 mmol/L (3.5-5.1); Sodium 138 mmol/L (137-145); Total Bilirubin 0.2 mg/dL (0.2-1.3); Total Protein 7.2 g/dL (6.3-8.2)
[2020-07-27 22:07] LABS: Basophils % (A) 0 %; Eosinophils # (A) 0.1 k/uL (0-0.7); Eosinophils % (A) 1 %; HCT 40.3 % (34.0-46.0); HGB 13.7 gm/dL (11.4-16.0); Lymphocytes # (A) 1.8 k/uL (1.0-4.8); Lymphocytes % (A) 18 %; MCH 31.3 pg (25.0-35.0); MCHC 34.1 g/dL (31.0-37.0); MCV 91.9 fL (80.0-100.0); Mean Platelet Volume 7.6; Monocytes # (A) 0.5 k/uL (0-1.0); Monocytes % (A) 5 %; Neutrophils # (A) 7.6 k/uL (1.3-7.7); Neutrophils % (A) 75 %; Platelet Count 232 k/uL (150-450); RBC 4.38 m/uL (3.80-5.40); RDW 12.7 % (11.5-15.5)
--- NOTE | 2020-07-27 22:32 | US ---
EXAMINATION TYPE: US OB >= 14 wk fetus DATE OF EXAM: 07/27/2020 COMPARISON: US 2017, this is first US for this . CLINICAL HISTORY: bleeding Vaginal bleeding x 3 hours. Hx demise. . TECHNIQUE: Transabdominal (TA) GESTATIONAL AGE / DATING Physician Established: Not yet established. Dates by LMP: (15 weeks/5 days) EDC: 01/13/2021 Dates by First Scan: This is first scan. Dates by Current Scan: (14 weeks/2 days) EDC: 01/23/2021 Unable to visualize heart tones at this time. Beta HCG (if available): Detected SURVEY IUP: Single PLACENTA: Fundal. Appears to have slightly irregular contour. PREVIA: No Previa seen. ASHWINI: 10.29 cm Normal CERVICAL LENGTH (transabdominal: norm > 3.0cm): 3.39 cm -Limited due to patient body habitus. BIOMETRY PRESENTATION: Breech BPD: 2.16 cm 13 weeks / 4 days HC: 8.83 cm 14 weeks / 0 days AC: 7.64 cm 14 weeks / 1 day FL: 1.46 cm 14 weeks / 2 days ESTIMATED WEIGHT IN GRAMS: 91.49 grams ESTIMATED WEIGHT IN LBS/OZ: 0 lbs. 3 oz. WEIGHT PERCENTAGE BASED ON ESTABLISHED DATES:<3% HC/AC: 1.16 Normal FL/AC: 19.16 HEART RATE: Unable to visualize heart tones at this time by ultrasound. IMPRESSION: There is intrauterine demise at 14 weeks and 2 days.
--- NOTE | 2020-07-27 22:46 | ED ---
General Adult HPI - General Chief complaint: Vaginal Bleeding Stated complaint: Vaginal bleeding,16 wks preg Time Seen by Provider: 07/27/20 20:38 Source: patient Mode of arrival: ambulatory Limitations: no limitations - History of Present Illness Initial comments: 25-year-old female presents to the emergency room for a chief complaint of vaginal bleeding. Patient states about an hour ago she passed a few clots. States it has slowed down since then. Patient is concerned because she has had a miscarriage in the past at 15 weeks. Patient denies any abdominal pain. Patient Did have an ultrasound showing an intrauterine several weeks ago.Patient has no other complaints at this time including shortness of breath, chest pain, abdominal pain, nausea or vomiting, headache, or visual changes. - Related Data Home Medications Medication Instructions Recorded Confirmed Pnv No.95/Ferrous Fum/Folic AC 1 tab PO HS 06/14/19 07/27/20 [ Multivitamin Tablet] Fish Oil(Unknown Dose) 1 cap PO HS 07/27/20 07/27/20 Allergies Allergy/AdvReac Type Severity Reaction Status Date / Time codeine Allergy Rash/Hives Verified 07/27/20 22:39 prochlorperazine AdvReac Confusion Verified 07/27/20 22:39 [From Compazine] Review of Systems ROS Statement: Those systems with pertinent positive or pertinent negative responses have been documented in the HPI. ROS Other: All systems not noted in ROS Statement are negative. Past Medical History Past Medical History: Neurologic Disorder Additional Past Medical History / Comment(s): OB history: First was a full term vaginal delivery. Second was a demise at 15 weeks gestation she delivered that baby vaginally as well. Third was a full-term vaginal delivery. This is her fourth and she's had care with me since 9 weeks gestation. Blood type is B+, antibodies negative, rubella immune, RPR nonreactive, hepatitis B-, HIV nonreactive, toxoplasmosis negative. GBS negative. History of Any Multi-Drug Resistant Organisms: None Reported Past Surgical History: No Surgical Hx Reported Additional Past Surgical History / Comment(s): Eye surgery Past Anesthesia/Blood Transfusion Reactions: No Reported Reaction Past Psychological History: No Psychological Hx Reported Smoking Status: Never smoker Past Alcohol Use History: None Reported Past Drug Use History: None Reported - Past Family History Mother History Unknown: Yes Family Medical History: No Reported History General Exam Limitations: no limitations General appearance: alert Head exam: Present: atraumatic Eye exam: Present: normal appearance, PERRL, EOMI ENT exam: Present: normal exam, mucous membranes moist Neck exam: Present: normal inspection, full ROM. Absent: tenderness Respiratory exam: Present: normal lung sounds bilaterally. Absent: respiratory distress, wheezes Cardiovascular Exam: Present: regular rate, normal rhythm, normal heart sounds. Absent: systolic murmur, diastolic murmur, rubs, gallop, clicks GI/Abdominal exam: Present: soft, normal bowel sounds. Absent: distended, tenderness, guarding, rebound, rigid External exam: Present: normal external exam. Absent: erythema, swelling, lesions, lacerations, ecchymosis Speculum exam: Present: vaginal bleeding (slight). Absent: normal speculum exam, erythema, vaginal discharge, cervical discharge, foreign body, tissue, laceration Course Vital Signs 07/27/20 07/27/20 20:24 22:54 Temperature 99.4 F Pulse Rate 112 H 85 Respiratory 18 18 Rate Blood Pressure 126/73 152/95 O2 Sat by Pulse 99 99 Oximetry Medical Decision Making - Medical Decision Making Vitals are stable. Patient is well-appearing. Abdomen is nontender. Pelvic exam reveals minimal vaginal bleeding. No tissue in the cervical os. CBC CMP unremarkable. Urinalysis unremarkable. ultrasound did reveal intrauterine demise at 14 weeks 2 days. Blood type is B+. I did discuss this case with on-call PASTE UP ARTIST Dr. Mathew recommends calling Dr. Hi's office first thing in the morning. I discussed strict return parameters with patient including heavy vaginal bleeding or severe pain. She will return if these occ ur. - Lab Data Result diagrams: 07/27/20 21:39 07/27/20 21:39 Lab Results 07/27/20 07/27/20 07/27/20 Range/Units 21:39 21:39 21:39 WBC 10.0 (3.8-10.6) k/uL RBC 4.38 (3.80-5.40) m/uL Hgb 13.7 (11.4-16.0) gm/dL Hct 40.3 (34.0-46.0) % MCV 91.9 (80.0-100.0) fL MCH 31.3 (25.0-35.0) pg MCHC 34.1 (31.0-37.0) g/dL RDW 12.7 (11.5-15.5) % Plt Count 232 (150-450) k/uL MPV 7.6 Neutrophils % 75 % Lymphocytes % 18 % Monocytes % 5 % Eosinophils % 1 % Basophils % 0 % Neutrophils # 7.6 (1.3-7.7) k/uL Lymphocytes # 1.8 (1.0-4.8) k/uL Monocytes # 0.5 (0-1.0) k/uL Eosinophils # 0.1 (0-0.7) k/uL Basophils # 0.0 (0-0.2) k/uL Sodium (137-145) mmol/L Potassium (3.5-5.1) mmol/L Chloride (98-107) mmol/L Carbon Dioxide (22-30) mmol/L Anion Gap mmol/L BUN (7-17) mg/dL Creatinine (0.52-1.04) mg/dL Est GFR (CKD-EPI)AfAm (>60 ml/min/1.73 sqM) Est GFR (CKD-EPI)NonAf (>60 ml/min/1.73 sqM) Glucose (74-99) mg/dL Calcium (8.4-10.2) mg/dL Total Bilirubin (0.2-1.3) mg/dL AST (14-36) U/L ALT (4-34) U/L Alkaline Phosphatase (38-126) U/L Total Protein (6.3-8.2) g/dL Albumin (3.5-5.0) g/dL Urine Color Light Yellow Urine Appearance Clear (Clear) Urine pH 6.5 (5.0-8.0) Ur Specific [place] 1.003 (1.001-1.035) Urine Protein Negative (Negative) Urine Glucose (UA) Negative (Negative) Urine Ketones Negative (Negative) Urine Blood Large H (Negative) Urine Nitrite Negative (Negative) Urine Bilirubin Negative (Negative) Urine Urobilinogen <2.0 (<2.0) mg/dL Ur Leukocyte Esterase Negative (Negative) Urine RBC 2 (0-5) /hpf Urine WBC 1 (0-5) /hpf Ur Squamous Epith Cells 3 (0-4) /hpf Urine Bacteria Rare H (None) /hpf Urine HCG, Qual Detected (Not Detectd) Trichomonas Ag (Rapid) (Negative) Blood Type Blood Type Recheck Bld Type Recheck Status 07/27/20 07/27/20 07/27/20 Range/Units 21:39 21:39 21:39 WBC (3.8-10.6) k/uL RBC (3.80-5.40) m/uL Hgb (11.4-16.0) gm/dL Hct (34.0-46.0) % MCV (80.0-100.0) fL MCH (25.0-35.0) pg MCHC (31.0-37.0) g/dL RDW (11.5-15.5) % Plt Count (150-450) k/uL MPV Neutrophils % % Lymphocytes % % Monocytes % % Eosinophils % % Basophils % % Neutrophils # (1.3-7.7) k/uL Lymphocytes # (1.0-4.8) k/uL Monocytes # (0-1.0) k/uL Eosinophils # (0-0.7) k/uL Basophils # (0-0.2) k/uL Sodium 138 (137-145) mmol/L Potassium 3.9 (3.5-5.1) mmol/L Chloride 104 (98-107) mmol/L Carbon Dioxide 24 (22-30) mmol/L Anion Gap 10 mmol/L BUN 7 (7-17) mg/dL Creatinine 0.64 (0.52-1.04) mg/dL Est GFR (CKD-EPI)AfAm >90 (>60 ml/min/1.73 sqM) Est GFR (CKD-EPI)NonAf >90 (>60 ml/min/1.73 sqM) Glucose 102 H (74-99) mg/dL Calcium 9.8 (8.4-10.2) mg/dL Total Bilirubin 0.2 (0.2-1.3) mg/dL AST 19 (14-36) U/L ALT 12 (4-34) U/L Alkaline Phosphatase 64 (38-126) U/L Total Protein 7.2 (6.3-8.2) g/dL Albumin 4.1 (3.5-5.0) g/dL Urine Color Urine Appearance (Clear) Urine pH (5.0-8.0) Ur Specific [place] (1.001-1.035) Urine Protein (Negative) Urine Glucose (UA) (Negative) Urine Ketones (Negative) Urine Blood (Negative) Urine Nitrite (Negative) Urine Bilirubin (Negative) Urine Urobilinogen (<2.0) mg/dL Ur Leukocyte Esterase (Negative) Urine RBC (0-5) /hpf Urine WBC (0-5) /hpf Ur Squamous Epith Cells (0-4) /hpf Urine Bacteria (None) /hpf Urine HCG, Qual (Not Detectd) Trichomonas Ag (Rapid) Negative (Negative) Blood Type B Positive Blood Type Recheck B Pos Bld Type Recheck Status No Disposition Clinical Impression: Incomplete miscarriage, Vaginal bleeding Disposition: HOME SELF-CARE Condition: Good Instructions (If sedation given, give patient instructions): Miscarriage (ED) Additional Instructions: Please call Dr. Hi's office between 8 and 9 in the morning. You will likely need to see her tomorrow. Please return to the emergency Department if you develop any significant vaginal bleeding or pain. Is patient prescribed a controlled substance at d/c from ED?: No Referrals: Magnus Powers MD [Primary Care Provider] - 1-2 days Time of Disposition: 23:03
[2020-07-27 22:54] VITALS: BP 152/95; PULSE 85
== END 2020-07-27 23:20 | disposition home or self-care (01) ==
LOC: EC 20:13
DX: O03.4 Incomplete spontaneous abortion without complication (principal); Z3A.14 14 weeks gestation of pregnancy; Z88.5 Allergy status to narcotic agent; Z88.8 Allergy status to other drugs, medicaments and biological substances
CPT/HCPCS: 36415; 76805; 80053; 81001; 81025; 85025; 86900; 86901; 87491; 87591; 87808; 99284

== ENCOUNTER 2020-07-28 13:01 | Emergency (ER) | payer BC, OTHER ==
[2020-07-28 13:23] VITALS: BP 135/90; PULSE 101; RESP 18; TEMP 98.7
[2020-07-28] MEDS ORDERED: ACETAMINOPHEN TAB 500 MG TAB PO STA (14:15)
[2020-07-28] MEDS ORDERED: CARBOPROST TROMETHAMINE 250 MCG/ML 1 ML AMP IM ONE (14:15)
[2020-07-28] MEDS ORDERED: LOPERAMIDE 2 MG CAP PO STA (14:15)
[2020-07-28] MEDS ORDERED: SODIUM CHLORIDE 0.9% 1,000 ML IV STA (14:16)
[2020-07-28 14:41] LABS: Basophils % (A) 0 %; Eosinophils # (A) 0.1 k/uL (0-0.7); Eosinophils % (A) 1 %; HCT 39.7 % (34.0-46.0); HGB 13.4 gm/dL (11.4-16.0); Lymphocytes # (A) 1.5 k/uL (1.0-4.8); Lymphocytes % (A) 12 %; MCH 30.7 pg (25.0-35.0); MCHC 33.7 g/dL (31.0-37.0); MCV 91.2 fL (80.0-100.0); Mean Platelet Volume 7.2; Monocytes # (A) 0.4 k/uL (0-1.0); Monocytes % (A) 3 %; Neutrophils # (A) 10.7 k/uL (1.3-7.7); Neutrophils % (A) 83 %; Platelet Count 258 k/uL (150-450); RBC 4.35 m/uL (3.80-5.40); RDW 13.3 % (11.5-15.5); WBC 12.8 k/uL (3.8-10.6)
[2020-07-28 14:48] LABS: ALT 12 U/L (4-34); AST 23 U/L (14-36); African American GFR (CKD) >90 (>60 ml/min/1.73 sqM); Albumin 4.1 g/dL (3.5-5.0); Alkaline Phosphatase 67 U/L (38-126); Anion Gap 9 mmol/L; Blood Urea Nitrogen 6 mg/dL (7-17); Calcium 9.4 mg/dL (8.4-10.2); Carbon Dioxide 20 mmol/L (22-30); Chloride 108 mmol/L (98-107); Glucose 89 mg/dL (74-99); Non-African American GFR(CKD) >90 (>60 ml/min/1.73 sqM); Potassium 4.1 mmol/L (3.5-5.1); Sodium 137 mmol/L (137-145); Total Bilirubin 0.4 mg/dL (0.2-1.3); Total Protein 7.4 g/dL (6.3-8.2)
--- NOTE | 2020-07-28 15:11 | ED ---
Female Urogenital HPI - General Chief complaint: Vaginal Bleeding Stated complaint: Female issues Time Seen by Provider: 07/28/20 13:27 Source: patient Mode of arrival: ambulatory Limitations: no limitations - History of Present Illness Initial comments: Patient is a 25-year-old female presenting to the emergency Department with complaints of a miscarriage that happened at home today. Patient was evaluated yesterday in the ER and her 16 week old fetus was determined to not have a heartbeat. She was supposed to be induced tomorrow however today, her water broke and she delivered very fast at home about half hour prior to arrival to [facility] ER. She does have the fetus and her placenta with her today. She is complaining of vaginal bleeding and some intermittent cramping. Patient's PROSTHETIC AIDE is Dr. Hi. She denies any lightheadedness, no dizziness, no chest pain or shortness of breath. No fever or chills. Patient is . Patient has no further complaints. Upon arrival to the ER, her vitals are stable. - Related Data Home Medications Medication Instructions Recorded Confirmed Pnv No.95/Ferrous Fum/Folic AC 1 tab PO HS 06/14/19 07/28/20 [ Multivitamin Tablet] Fish Oil(Unknown Dose) 1 cap PO HS 07/27/20 07/28/20 Ibuprofen [Advil] 400 mg PO ONETIME PRN 07/28/20 07/28/20 Allergies Allergy/AdvReac Type Severity Reaction Status Date / Time codeine Allergy Rash/Hives Verified 07/28/20 15:16 prochlorperazine AdvReac Confusion Verified 07/28/20 15:16 [From Compazine] Review of Systems ROS Statement: Those systems with pertinent positive or pertinent negative responses have been documented in the HPI. ROS Other: All systems not noted in ROS Statement are negative. Past Medical History Past Medical History: Neurologic Disorder Additional Past Medical History / Comment(s): OB history: First was a full term vaginal delivery. Second was a demise at 15 weeks gestation she delivered that baby vaginally as well. Third was a full-term vaginal delivery. This is her fourth and she's had care with me since 9 weeks gestation. Blood type is B+, antibodies negative, rubella immune, RPR nonreactive, hepatitis B-, HIV nonreactive, toxoplasmosis negative. GBS negative. History of Any Multi-Drug Resistant Organisms: None Reported Past Surgical History: No Surgical Hx Reported Additional Past Surgical History / Comment(s): Eye surgery Past Anesthesia/Blood Transfusion Reactions: No Reported Reaction Past Psychological History: No Psychological Hx Reported Smoking Status: Never smoker Past Alcohol Use History: None Reported Past Drug Use History: None Reported - Past Family History Mother History Unknown: Yes Family Medical History: No Reported History General Exam - General Exam Comments Initial Comments: GENERAL: Patient is well-developed and well-nourished. Patient is nontoxic and in no acute distress. HEAD: Atraumatic, normocephalic. EYES: Pupils equal round and reactive to light, extraocular movements intact, sclera anicteric, conjunctiva are normal. Eyelids were unremarkable. ENT: TMs normal, nares patent, oropharynx clear without exudates. Moist mucous membranes. NECK: Normal range of motion, supple without lymphadenopathy or JVD. LUNGS: Unlabored respirations. Breath sounds clear to auscultation bilaterally and equal. No wheezes rales or rhonchi. HEART: Regular rate and rhythm without murmurs, rubs or gallops. ABDOMEN: Lower abdominal tenderness to palpation. Soft, normoactive bowel sounds. No guarding, no rebound. No masses appreciated. MUSCULOSKELETAL: Normal extremities with adequate strength and normal range of motion, no pitting or edema. No clubbing or cyanosis. NEUROLOGICAL: Patient is alert and oriented x 3. Motor and sensory are also intact. Cranial nerves II through XII grossly intact. Symmetrical smile. Normal speech, normal gait. PSYCH: Normal mood, normal affect. SKIN: Warm, Dry, normal turgor, no rashes or lesions noted. Limitations: no limitations External exam: Present: normal external exam Speculum exam: Present: vaginal bleeding (Moderate vaginal bleeding, small clots visible) Course Vital Signs 07/28/20 13:18 Temperature 98.7 F Pulse Rate 101 H Respiratory 18 Rate Blood Pressure 135/90 O2 Sat by Pulse 98 Oximetry Medical Decision Making - Medical Decision Making Patient is a 25-year-old female here after delivering a 16 week fetus at home along with the placenta about a half hour prior to arrival. She was seen here in the ER yesterday, ultrasound confirmed demise, she was supposed to be induced tomorrow. PROSTHETIC AIDE is Dr. Hi. Vaginal exam does reveal moderate amount of bleeding, small clots. Patient is having intermittent lower abdominal cramping. I did speak to Dr. Hi today who recommended a dose of hemabate along with Imodium and Tylenol as well as IV fluids. We did check basic labs on the patient, hemoglobin is stable at 13.4. Upon reexamination, patient's vital signs remained stable, patient states the bleeding is very minimal at this point. She states she is still having intermittent abdominal cramping. Patient is wanting to go home to rest. I did speak to Dr. Hi again who was okay with patient being discharged since her bleeding is minimal. Patient will follow up with her in one week. Patient will continue with ibuprofen and Imodium for her symptoms. Patient is in agreement with this plan of care. Return parameters were discussed with the patient and she verbalized understanding. Case discussed with Dr. Aguila. - Lab Data Result diagrams: 07/28/20 14:22 07/28/20 14:22 Lab Results 07/28/20 07/28/20 Range/Units 14:22 14:22 WBC 12.8 H (3.8-10.6) k/uL RBC 4.35 (3.80-5.40) m/uL Hgb 13.4 (11.4-16.0) gm/dL Hct 39.7 (34.0-46.0) % MCV 91.2 (80.0-100.0) fL MCH 30.7 (25.0-35.0) pg MCHC 33.7 (31.0-37.0) g/dL RDW 13.3 (11.5-15.5) % Plt Count 258 (150-450) k/uL MPV 7.2 Neutrophils % 83 % Lymphocytes % 12 % Monocytes % 3 % Eosinophils % 1 % Basophils % 0 % Neutrophils # 10.7 H (1.3-7.7) k/uL Lymphocytes # 1.5 (1.0-4.8) k/uL Monocytes # 0.4 (0-1.0) k/uL Eosinophils # 0.1 (0-0.7) k/uL Basophils # 0.0 (0-0.2) k/uL Sodium 137 (137-145) mmol/L Potassium 4.1 (3.5-5.1) mmol/L Chloride 108 H (98-107) mmol/L Carbon Dioxide 20 L (22-30) mmol/L Anion Gap 9 mmol/L BUN 6 L (7-17) mg/dL Creatinine 0.45 L (0.52-1.04) mg/dL Est GFR (CKD-EPI)AfAm >90 (>60 ml/min/1.73 sqM) Est GFR (CKD-EPI)NonAf >90 (>60 ml/min/1.73 sqM) Glucose 89 (74-99) mg/dL Calcium 9.4 (8.4-10.2) mg/dL Total Bilirubin 0.4 (0.2-1.3) mg/dL AST 23 (14-36) U/L ALT 12 (4-34) U/L Alkaline Phosphatase 67 (38-126) U/L Total Protein 7.4 (6.3-8.2) g/dL Albumin 4.1 (3.5-5.0) g/dL Disposition Clinical Impression: Complete miscarriage, Vaginal bleeding, Bilateral lower abdominal cramping Disposition: HOME SELF-CARE Condition: Stable Instructions (If sedation given, give patient instructions): Miscarriage (ED) Additional Instructions: Please return to the Emergency Department if symptoms worsen or any other concerns. Recommend Motrin and Imodium. Please follow up with Dr. Hi in one week. Is patient prescribed a controlled substance at d/c from ED?: No Referrals: Magnus Powers MD [Primary Care Provider] - 1-2 days Rosa Hi DO [Doctor of Osteopathic Medicine] - 1-2 days
== END 2020-07-28 16:28 | disposition home or self-care (01) ==
LOC: EC 13:01
DX: O03.9 Complete or unspecified spontaneous abortion without complication (principal); Z3A.16 16 weeks gestation of pregnancy; Z88.5 Allergy status to narcotic agent; Z88.8 Allergy status to other drugs, medicaments and biological substances
CPT/HCPCS: 36415; 80053; 85025; 96360; 96372; 99284

== ENCOUNTER → 2020-12-10 | Outpatient (CLI) | payer OTHER | END | disposition home or self-care (01) | LOC: LABWHC1 11:24 | PROVIDERS: ATTEND Obstetrics & Gynecology | DX: N92.6 Irregular menstruation, unspecified (principal) | CPT/HCPCS: 36415; 84702 ==

== ENCOUNTER → 2021-02-23 | Outpatient (CLI) | payer OTHER ==
--- NOTE | 2021-02-23 15:58 | US ---
EXAMINATION TYPE: US OB >= 14 wk fetus DATE OF EXAM: 02/23/2021 COMPARISON: None CLINICAL HISTORY: Z36 confirm dates Confirm dates. Hx 1 miscarriage, 1 demise. A2. -Exam is limited due to patient body habitus. TECHNIQUE: Transabdominal (TA) GESTATIONAL AGE / DATING Physician Established: Not yet established. Dates by LMP: Unknown. Dates by First Scan: This is first scan. Dates by Current Scan: (15 weeks/1 day) EDC: 08/16/2021 SURVEY IUP: Single PLACENTA: Anterior. Complex area seen posteriorly: 1.7 x 1.4 x 1.1 cm. PREVIA: Placenta ends 1.49 cm from cervix. -Low lying. ASHWINI: 10.68 cm Normal CERVICAL LENGTH (transabdominal: norm > 3.0cm): 4.4 cm BIOMETRY PRESENTATION: Variable LIE: Transverse with head maternal L BPD: 2.49 cm 14 weeks / 2 days HC: 10.71 cm 15 weeks / 1 day AC: 9.39 cm 15 weeks / 4 days FL: 1.66 cm 14 weeks / 6 days ESTIMATED WEIGHT IN GRAMS: 114.41 grams ESTIMATED WEIGHT IN LBS/OZ: 0 lbs. 4 oz. WEIGHT PERCENTAGE BASED ON ESTABLISHED DATES: % HC/AC: 1.14 Normal FL/AC: 17.71 HEART RATE: 151 bpm RHYTHM: Normal MATERNAL WALL MEASUREMENT: 3.43 cm from skin to anterior uterine wall (if exam limited due to body duenas bitus). Cephalic index of 62.58 is below the standard range of 70-86. IMPRESSION: 1. Single intrauterine gestation estimated at 15 weeks 1 day gestation based on the current ultrasoun d measurements. 2. Cardiac activity measures 151 bpm. 3. Cephalic index is low during this measurements. Complete small parts scanning is recommended .
== END | disposition home or self-care (01) ==
LOC: RADUSWWP 14:57
PROVIDERS: ATTEND Obstetrics & Gynecology
DX: O28.3 Abnormal ultrasonic finding on antenatal screening of mother (principal); Z3A.15 15 weeks gestation of pregnancy
CPT/HCPCS: 76805

== ENCOUNTER 2021-08-08 13:00 | Emergency (ER) | payer OTHER ==
[2021-08-08 14:16] LABS: Basophils % (A) 0 %; Eosinophils # (A) 0.2 k/uL (0-0.7); Eosinophils % (A) 2 %; HCT 33.1 % (34.0-46.0); HGB 11.3 gm/dL (11.4-16.0); Lymphocytes # (A) 1.7 k/uL (1.0-4.8); Lymphocytes % (A) 16 %; MCH 32.9 pg (25.0-35.0); MCHC 34.3 g/dL (31.0-37.0); Mean Platelet Volume 8.2; Monocytes # (A) 0.4 k/uL (0-1.0); Monocytes % (A) 4 %; Neutrophils % (A) 77 %; Platelet Count 226 k/uL (150-450); RBC 3.44 m/uL (3.80-5.40); RDW 14.1 % (11.5-15.5); WBC 10.4 k/uL (3.8-10.6)
[2021-08-08 14:25] LABS: INR 0.8 (<1.2); Partial Thromboplastin Time 22.6 sec (22.0-30.0); Prothrombin Time 9.3 sec (9.0-12.0)
[2021-08-08 14:26] LABS: ALT 33 U/L (4-34); AST 40 U/L (14-36); African American GFR (CKD) >90 (>60 ml/min/1.73 sqM); Albumin 3.9 g/dL (3.5-5.0); Alkaline Phosphatase 96 U/L (38-126); Anion Gap 5 mmol/L; Blood Urea Nitrogen 6 mg/dL (7-17); Calcium 9.2 mg/dL (8.4-10.2); Carbon Dioxide 26 mmol/L (22-30); Chloride 108 mmol/L (98-107); Glucose 83 mg/dL (74-99); LDH 691 U/L (313-618); Non-African American GFR(CKD) >90 (>60 ml/min/1.73 sqM); Potassium 3.8 mmol/L (3.5-5.1); Sodium 139 mmol/L (137-145); Total Bilirubin 0.5 mg/dL (0.2-1.3); Total Protein 7.3 g/dL (6.3-8.2); Uric Acid 4.6 mg/dL (3.7-7.4)
--- NOTE | 2021-08-08 14:32 | ED ---
General Adult HPI - General Chief complaint: Arrhythmia/Palpitations Stated complaint: had baby recently, heavy bleeding, racing heart Time Seen by Provider: 08/08/21 13:18 Source: patient, RN notes reviewed Mode of arrival: ambulatory Limitations: no limitations - History of Present Illness Initial comments: 26-year-old female presenting for evaluation of palpitations. Patient had a vaginal delivery 4 days prior. She passed one large clot prior to arrival and became quite anxious. She has been eating and drinking well. She is currently breast-feeding. She has no chest pain or dyspnea. No right upper quadrant pain. No lower extremity pain or swelling. - Related Data Home Medications Medication Instructions Recorded Confirmed Pnv No.95/Ferrous Fum/Folic AC 1 tab PO HS 06/14/19 08/04/21 [ Multivitamin Tablet] Loratadine [Claritin] 10 mg PO DAILY 08/04/21 08/04/21 Previous Rx's Medication Instructions Recorded Ibuprofen [Motrin] 600 mg PO Q6HR PRN #40 tab 08/05/21 Allergies Allergy/AdvReac Type Severity Reaction Status Date / Time codeine Allergy Rash/Hives Verified 08/08/21 13:09 prochlorperazine AdvReac Confusion Verified 08/08/21 13:09 [From Compazine] Review of Systems ROS Statement: Those systems with pertinent positive or pertinent negative responses have been documented in the HPI. ROS Other: All systems not noted in ROS Statement are negative. Past Medical History Past Medical History: Neurologic Disorder Additional Past Medical History / Comment(s): BRCA1 gene History of Any Multi-Drug Resistant Organisms: None Reported Past Surgical History: No Surgical Hx Reported Additional Past Surgical History / Comment(s): Eye surgery Past Anesthesia/Blood Transfusion Reactions: No Reported Reaction Past Psychological History: No Psychological Hx Reported Smoking Status: Never smoker Past Alcohol Use History: None Reported Past Drug Use History: None Reported - Past Family History Mother History Unknown: Yes Family Medical History: No Reported History Additional Family Medical History / Comment(s): Quin gene Father History Unknown: Yes General Exam Limitations: no limitations General appearance: alert, in no apparent distress Head exam: Present: atraumatic, normocephalic Eye exam: Present: normal appearance, PERRL ENT exam: Present: normal exam Neck exam: Present: normal inspection. Absent: tenderness, meningismus Respiratory exam: Present: normal lung sounds bilaterally. Absent: respiratory distress, wheezes Cardiovascular Exam: Present: regular rate, normal rhythm GI/Abdominal exam: Present: soft. Absent: distended, tenderness, guarding, rebound External exam: Present: normal external exam. Absent: swelling, lacerations Extremities exam: Present: normal inspection, normal capillary refill. Absent: pedal edema, calf tenderness Back exam: Present: normal inspection Neurological exam: Present: alert, oriented X3, CN II-XII intact. Absent: motor sensory deficit Psychiatric exam: Present: normal affect, normal mood Skin exam: Present: warm, dry, intact. Absent: cyanosis, diaphoretic Course Vital Signs 08/08/21 08/08/21 13:06 14:51 Temperature 98.2 F 98.6 F Pulse Rate 101 H 98 Respiratory 20 16 Rate Blood Pressure 164/92 147/81 O2 Sat by Pulse 100 98 Oximetry EKG Findings - EKG Comments: EKG Findings:: EKG: Sinus rhythm with sinus arrhythmia, rate 91, LA interval 133, QRS duration 87, QTC 373, no ST segment elevation Medical Decision Making - Medical Decision Making 26-year-old female with vaginal bleeding, and some anxiety which she admits to. She did have some palpitations as well. She is in sinus rhythm rate of 90. No ischemic changes. She has improved hemoglobin 11.3. She had a uric acid which is normal, mild elevation in LDH. No protein in the urine. Overall patient is well-appearing with stable vitals. She is mildly hypertensive. I did discuss the findings with Dr. Nicole who is covering for Dr. Hi. He recommends a close reevaluation on Monday which is 2 days from now for repeat blood pressure check. Return parameters were discussed at length with the patient. - Lab Data Result diagrams: 08/08/21 14:06 08/08/21 14:06 Lab Results 08/08/21 08/08/21 08/08/21 Range/Units 13:19 14:00 14:06 WBC 10.4 (3.8-10.6) k/uL RBC 3.44 L (3.80-5.40) m/uL Hgb 11.3 L (11.4-16.0) gm/dL Hct 33.1 L (34.0-46.0) % MCV 96.0 (80.0-100.0) fL MCH 32.9 (25.0-35.0) pg MCHC 34.3 (31.0-37.0) g/dL RDW 14.1 (11.5-15.5) % Plt Count 226 (150-450) k/uL MPV 8.2 Neutrophils % 77 % Lymphocytes % 16 % Monocytes % 4 % Eosinophils % 2 % Basophils % 0 % Neutrophils # 8.0 H (1.3-7.7) k/uL Lymphocytes # 1.7 (1.0-4.8) k/uL Monocytes # 0.4 (0-1.0) k/uL Eosinophils # 0.2 (0-0.7) k/uL Basophils # 0.0 (0-0.2) k/uL PT 9.3 (9.0-12.0) sec INR 0.8 (<1.2) APTT 22.6 (22.0-30.0) sec Sodium (137-145) mmol/L Potassium (3.5-5.1) mmol/L Chloride (98-107) mmol/L Carbon Dioxide (22-30) mmol/L Anion Gap mmol/L BUN (7-17) mg/dL Creatinine (0.52-1.04) mg/dL Est GFR (CKD-EPI)AfAm (>60 ml/min/1.73 sqM) Est GFR (CKD-EPI)NonAf (>60 ml/min/1.73 sqM) Glucose (74-99) mg/dL Uric Acid (3.7-7.4) mg/dL Calcium (8.4-10.2) mg/dL Magnesium (1.6-2.3) mg/dL Total Bilirubin (0.2-1.3) mg/dL AST (14-36) U/L ALT (4-34) U/L Alkaline Phosphatase (38-126) U/L Lactate Dehydrogenase (313-618) U/L Total Protein (6.3-8.2) g/dL Albumin (3.5-5.0) g/dL Urine Color Urine Appearance (Clear) Urine pH (5.0-8.0) Ur Specific [place] (1.001-1.035) Urine Protein (Negative) Urine Glucose (UA) (Negative) Urine Ketones (Negative) Urine Blood (Negative) Urine Nitrite (Negative) Urine Bilirubin (Negative) Urine Urobilinogen (<2.0) mg/dL Ur Leukocyte Esterase (Negative) Urine RBC (0-5) /hpf Urine WBC (0-5) /hpf Ur Squamous Epith Cells (0-4) /hpf Urine Bacteria (None) /hpf Urine Mucus (None) /hpf Blood Type B Positive Blood Type Recheck B Pos Bld Type Recheck Status No Antibody Screen NEGATIVE Spec Expiration Date 08/11/2021 - 231808/08/21 08/08/21 Range/Units 14:06 14:06 WBC (3.8-10.6) k/uL RBC (3.80-5.40) m/uL Hgb (11.4-16.0) gm/dL Hct (34.0-46.0) % MCV (80.0-100.0) fL MCH (25.0-35.0) pg MCHC (31.0-37.0) g/dL RDW (11.5-15.5) % Plt Count (150-450) k/uL MPV Neutrophils % % Lymphocytes % % Monocytes % % Eosinophils % % Basophils % % Neutrophils # (1.3-7.7) k/uL Lymphocytes # (1.0-4.8) k/uL Monocytes # (0-1.0) k/uL Eosinophils # (0-0.7) k/uL Basophils # (0-0.2) k/uL PT (9.0-12.0) sec INR (<1.2) APTT (22.0-30.0) sec Sodium 139 (137-145) mmol/L Potassium 3.8 (3.5-5.1) mmol/L Chloride 108 H (98-107) mmol/L Carbon Dioxide 26 (22-30) mmol/L Anion Gap 5 mmol/L BUN 6 L (7-17) mg/dL Creatinine 0.64 (0.52-1.04) mg/dL Est GFR (CKD-EPI)AfAm >90 (>60 ml/min/1.73 sqM) Est GFR (CKD-EPI)NonAf >90 (>60 ml/min/1.73 sqM) Glucose 83 (74-99) mg/dL Uric Acid 4.6 (3.7-7.4) mg/dL Calcium 9.2 (8.4-10.2) mg/dL Magnesium 2.0 (1.6-2.3) mg/dL Total Bilirubin 0.5 (0.2-1.3) mg/dL AST 40 H (14-36) U/L ALT 33 (4-34) U/L Alkaline Phosphatase 96 (38-126) U/L Lactate Dehydrogenase 691 H (313-618) U/L Total Protein 7.3 (6.3-8.2) g/dL Albumin 3.9 (3.5-5.0) g/dL Urine Color Light Yellow Urine Appearance Clear (Clear) Urine pH 7.0 (5.0-8.0) Ur Specific [place] 1.005 (1.001-1.035) Urine Protein Negative (Negative) Urine Glucose (UA) Negative (Negative) Urine Ketones Negative (Negative) Urine Blood Large H (Negative) Urine Nitrite Negative (Negative) Urine Bilirubin Negative (Negative) Urine Urobilinogen <2.0 (<2.0) mg/dL Ur Leukocyte Esterase Large H (Negative) Urine RBC 76 H (0-5) /hpf Urine WBC 69 H (0-5) /hpf Ur Squamous Epith Cells 3 (0-4) /hpf Urine Bacteria Rare H (None) /hpf Urine Mucus Rare H (None) /hpf Blood Type Blood Type Recheck Bld Type Recheck Status Antibody Screen Spec Expiration Date Disposition Clinical Impression: Palpitations Disposition: HOME SELF-CARE Condition: Good Instructions (If sedation given, give patient instructions): Heart Palpitations (ED) Is patient prescribed a controlled substance at d/c from ED?: No Referrals: None,Stated [Primary Care Provider] - 1-2 days Rosa Hi DO [Doctor of Osteopathic Medicine] - 1-2 days Time of Disposition: 15:21
[2021-08-08 14:34] LABS: Appearance,Urine Clear (Clear); Bacteria,Urine Rare /hpf; Bilirubin,Urine Negative (Negative); Blood,Urine Large (Negative); Color,Urine Light Yellow; Glucose,Urine (UA) Negative (Negative); Ketones,Urine Negative (Negative); Leukocyte Esterase,Urine Large (Negative); Mucus,Urine Rare /hpf; Nitrite,Urine Negative (Negative); Protein,Urine Negative (Negative); RBC,Urine 76 /hpf (0-5); Specific Gravity,Urine 1.005 (1.001-1.035); Squamous Epithelial Cell,Urine 3 /hpf (0-4); Urobilinogen,Urine <2.0 mg/dL (<2.0); WBC,Urine 69 /hpf (0-5)
[2021-08-08 14:52] VITALS: BP 147/81; PULSE 98; RESP 16; TEMP 98.6
[2021-08-08] MEDS ORDERED: SODIUM CHLORIDE 0.9% 500 ML 500 ML IV ONE (15:09)
== END 2021-08-08 16:46 | disposition home or self-care (01) ==
LOC: EC 13:00
DX: O99.893 Other specified diseases and conditions complicating puerperium (principal); R00.2 Palpitations
CPT/HCPCS: 36415; 80053; 81001; 83615; 83735; 84550; 85025; 85610; 85730; 86850; 86900; 86901; 87077; 87086; 87186; 93005; 96360; 99285

== ENCOUNTER → 2022-11-15 | Outpatient (CLI) | payer OTHER ==
--- NOTE | 2022-11-15 09:21 | MR ---
EXAMINATION TYPE: MR knee RT wo con DATE OF EXAM: 11/15/2022 COMPARISON: Right knee radiograph 11/10/2022 HISTORY: Right knee pain, S/P fall. TECHNIQUE: Multiplanar, multisequence imaging of the right knee is performed without IV contrast. FINDINGS: MEDIAL MENISCUS: The anterior horn is intact without tear. There is a horizontal tear involving the p osterior horn. LATERAL MENISCUS: Anterior and posterior horns are intact without tear. CRUCIATE LIGAMENTS: There is a complete tear of the anterior cruciate ligament. The posterior cruciat e ligament is intact. COLLATERAL LIGAMENTS: The lateral collateral ligament complex are intact and unremarkable. There is a grade 3 complete tear of the medial collateral ligament with surrounding edema. EXTENSOR MECHANISM: Visualized quadriceps and patellar tendons are intact. EFFUSION: Moderate size suprapatellar joint effusion. POPLITEAL CYST: No popliteal/munoz cyst. TRICOMPARTMENT SPACES: No joint space narrowing. CARTILAGE: The cartilage of the patellofemoral joint demonstrates areas of heterogeneous signal. The cartilage of the medial knee joint is intact. There is a focal cartilage defect measuring 1 x 1.4 cm involving the anterior aspect of the lateral femoral condyle. BONE MARROW SIGNAL: Kissing contusions involving the bilateral posterior tibial plateau and lateral a nterior femoral condyle. Incidental solitary bone cyst involving the distal femoral diaphysis measuri ng up to 1.5 cm. OTHER: Mild prepatellar soft tissue edema. IMPRESSION: 1. Complete anterior cruciate ligament tear. 2. Complete grade 3 medial collateral ligament tear. 3. Horizontal tear involving the medial meniscus posterior horn. 4. Kissing contusions involving the bilateral posterior tibial plateau and anterior aspect of the lat eral femoral condyle. 5. Focal cartilage defect involving the anterior aspect of the lateral femoral condyle. 6. Moderate sized suprapatellar joint effusion.
== END | disposition home or self-care (01) ==
LOC: RADMRIMAIN 07:31
PROVIDERS: ATTEND Orthopaedic Surgery
DX: S83.241A Other tear of medial meniscus, current injury, right knee, initial encounter (principal); S80.01XA Contusion of right knee, initial encounter; M25.461 Effusion, right knee